=== PATIENT | female | born 1955 | race Caucasian/White ===

== ENCOUNTER → 2021-06-29 | Outpatient (CLI) | payer MEDICARE ==
--- NOTE | 2021-06-29 12:36 | REP ---
INDICATION: R/O PNEUMONIA WORSENING COUGH X1 WK COUGH COMPARISON: None. TECHNIQUE: PA/Lateral FINDINGS: Lungs: Clear, no infiltrate. Heart: Normal in size. Mediastinum: Mediastinal silhouette unremarkable. Pleural angles: Unremarkable.. There is mild biapical pleural thickening. Bones and soft tissues: Metallic plate and screws are seen in the mid to distal right clavicle. There are degenerative changes of the spine without compression deformity. IMPRESSION: No acute pulmonary disease. <Electronically signed by Cristofer Wilcox > 06/29/21 [id number]
== END ==
LOC: M WUC 11:53
PROVIDERS: ATTEND Internal Medicine
DX: R05 Cough (principal)